=== PATIENT | female | born 1965 | race Caucasian/White ===

== ENCOUNTER 2018-10-08 17:41 | Inpatient (IN) ==
[2018-10-08] MEDS ORDERED: Ipratropium/Albuterol Neb 3 ML IH ONE (17:46)
[2018-10-08] MEDS ORDERED: 0.9 % Sodium Chloride 1,000 ML IVC ONE (17:46)
[2018-10-08] MEDS ORDERED: methylPREDNISolone 125 MG/2 ML VIAL IVP ONE (17:46)
[2018-10-08] MEDS ORDERED: Levofloxacin 750 MG/150 ML 750 MG/150 ML BAG IVPB ONE (17:46)
--- NOTE | 2018-10-08 17:47 | Emergency Department Note ---
Disposition Clinical Impression: Acute exacerbation of chronic obstructive airways disease Disposition: Admitted As Inpatient Condition: Good Referrals: NONE,PCP [Primary Care Provider] - Forms: ED Satisfaction Letter SOB HPI - General Chief Complaint: ED Shortness of Breath/Dyspnea Stated Complaint: Short of breath, lightheaded low o2 Time Seen by Provider: 10/08/18 17:46 Source: patient, family, EMS Mode of arrival: EMS Limitations: no limitations Nursing Notes Reviewed: Yes Vital Signs Reviewed: Yes - History of Present Illness The patient arrives by EMS with a history of shortness of breath and dyspnea and exertional for the last week. She states she has week to where she is dizzy and near syncopal with standing and walking. She is on her home oxygen at 2 L but was saturating at 88% for EMS. They did administer an aerosol and transported her in for evaluation. They stated that she was saturating 93% for them. Patient has had a cough with phlegm area and she states this is dark yellow to brown and occasionally blood-streaked. She has had a feeling of fevers and chills. She has left-sided chest pain with coughing that is stabbing she denies any other chest pain or radiation of discomfort. She denies diaphoresis or nausea. She denies abdominal complaints. She is not having back pain. She has a low shortly swelling, immobilization or injury. She denies any history of heart disease. She states she does have COPD. She was seen for this yesterday at [facility] emergency department and she states she was sent home on steroids and an inhaler. Pt Subjective Complaint: shortness of breath, cough, chest pain (Left side with cough) Onset (ago): week(s) (1) Context: recent illness Severity: moderate, severe Consistency/Duration: gradually worsening Improves with: oxygen, rest, bronchodilators Worsens with: exertion, coughing Known history of: COPD, asthma Associated symptoms: Reports: chest pain (Left side with cough), pain with inspiration, fever, cough, wheezing, sputum production, hemoptysis. Denies: orthopnea, lower extremity pain, polyuria, polydipsia, parasthesias, palpitations, diaphoresis, nausea/vomiting, syncope, abdominal pain, rash, sense of impending doom Treatment prior to arrival: oxygen, bronchodilator Cough present: Yes Cough Description: Voluntary, Productive, Bronchospastic, Rattling Cough Frequency: Intermittent Sputum production: Yes Sputum Amount: Moderate Sputum Color: Yellow, [place] Tinged, Brown - Related Data Home oxygen amount: 2 liters Home Medications Medication Instructions Recorded Confirmed Azithromycin [Azithromycin 6-Tab 250 mg PO PER PKG DI 10/08/18 10/08/18 Pack] Previous Rx's Medication Instructions Recorded Albuterol Sulfate [Albuterol 2 puff IH Q4HR #1 hfa.aer.ad 06/17/18 Inhaler] Guaifenesin/Dm/Pseudoephedrine 1 each PO BID #20 tablet 06/17/18 [Capmist Dm Tablet] PredniSONE [Deltasone] 20 mg PO DAILY #12 tablet 06/17/18 Albuterol Neb [Proventil Neb] 2.5 mg IH Q4HR #30 vial.neb 10/06/18 Benzonatate [Tessalon] 200 mg PO TID #20 capsule 10/06/18 predniSONE [Prednisone] 50 mg PO DAILY #5 tablet 10/06/18 Allergies Allergy/AdvReac Type Severity Reaction Status Date / Time cephalexin [From Keflex] Allergy Difficulty Verified 10/06/18 09:18 Breathing codeine Allergy Difficulty Verified 10/06/18 09:18 Breathing All systems ED: reviewed and negative except as stated. Past Medical History - Past Medical History Attestation: Yes The following information was validated with the patient. Source: patient, old records reviewed, nursing notes reviewed Medical history: Reports: COPD. Denies: coronary artery disease, DVT, hyperlipidemia, hypertension, myocardial infarction, pulmonary embolus [employer]ON[employer]MAN history: Reports: bilateral tubal ligation - Social History Smoking Status: Current some day smoker Smokeless Tobacco Status: No Alcohol use: Reports: none Drug use: Reports: none Physical Exam - General Limitations: no limitations General appearance: alert, anxious - Head Head exam: atraumatic, normocephalic, normal inspection - Eye Eye exam: Present: normal appearance, PERRL, EOMI - ENT ENT exam: normal exam, normal oropharynx, mucous membranes moist - Neck Neck exam: Present: normal inspection, full ROM, trachea midline. Absent: tenderness, meningismus, lymphadenopathy - Chest Chest inspection: Present: normal inspection, symmetric chest wall rise - Respiratory Respiratory exam: Present: respiratory distress, wheezes, prolonged expiratory phase. Absent: stridor, accessory muscle use - Cardiovascular Cardiovascular exam: Present: regular rate, normal rhythm, normal heart sounds - Abdominal Exam Abdominal exam: Present: soft, Non-Tender, normal bowel sounds. Absent: tenderness, distention, guarding, rebound, rigidity - Extremities Exam Extremities exam: Present: normal inspection, full ROM, normal capillary refill. Absent: tenderness, pedal edema, calf tenderness - Expanded Lower Extremity Exam Neurovascular/Tendon exam: Present: normal capillary refill. Absent: motor deficit, sensory deficit, tendon deficit Gait: not tested/not observed - Back Exam Back exam: Present: normal inspection, full ROM. Absent: tenderness - Neurological Exam Neurological exam: Present: alert, oriented X3 - Psychiatric Psychiatric exam: Present: normal affect, anxious - Skin Skin exam: Present: warm, dry, intact, normal color. Absent: cyanosis, diapho resis, pallor Course Course Narrative: Old record was reviewed upon the patient's arrival. She is been started on respiratory protocol with aerosols, IV, Solu-Medrol as well as some Levaquin. She has reported allergy to cephalexin. I anticipate her likely observation given failure of outpatient treatment and persistent hypoxia on her home oxygen. 1899: The patient does have an elevated d-dimer. A CT PE study has been ordered. Her daughter has arrived and states she is started on azithromycin today. She had 2 tablets at 2 PM. 1939: The patient is in CT for PE study at this time. I had talked to Dr. Cheng is agreeable with observation at this facility should the CT PE study be negative for central pulmonary emboli. Preliminary orders have been obtained for her admission and we are waiting radiology read on the CT PE. Vital Signs Temperature 98.1 F 10/08/18 17:42 Pulse Rate 109 10/08/18 17:42 Respiratory Rate 20 10/08/18 17:42 Blood Pressure 114/92 10/08/18 17:42 O2 Sat by Pulse Oximetry 92 10/08/18 17:42 Temperature 98.1 F 10/08/18 17:42 Pulse Rate 103 10/08/18 20:10 Respiratory Rate 25 10/08/18 19:50 Blood Pressure 114/70 10/08/18 20:00 O2 Sat by Pulse Oximetry 90 10/08/18 20:10 Oxygen Delivery Oxygen Delivery Nasal Cannula Shortness of Breath/Dyspnea - Differential Diagnosis Likely: acute exacerbation of chronic obstructive airways disease, pneumonia, asthma with exacerbation - Medical Records Medical records reviewed: Yes I reviewed the patient's medical records. Patient was seen yesterday for history of dyspnea with some blood-streaked white phlegm. She had imaging, EKG and extensive laboratory without finding acute abnormality. She was started on prednisone, albuterol and Tessalon. X-ray report is as follows: XR/XR chest 1V portable IMPRESSION: 1. No active pulmonary disease. D/ / Mathieu Scott MD / Mathieu Scott MD - Lab Data Lab results reviewed: Yes I reviewed the patient's lab results. Result diagrams: 10/08/18 18:11 10/08/18 18:11 Lab Results 10/08/18 10/08/18 10/08/18 Range/Units 18:11 18:11 18:11 WBC 5.1 (4.3-11.1) K/mcL RBC 4.21 (3.82-4.97) M/mcL Hgb 12.7 (11.5-15.4) g/dL Hct 37.5 (35.3-44.9) % MCV 89.1 (83.0-100.0) fL MCH 30.2 (28.0-33.3) pg MCHC 33.9 (31.6-35.5) g/dL RDW 12.5 (11.5-14.5) % Plt Count 178 (140-400) K/mcL MPV 10.0 (9.4-12.4) fL Immature Gran % 0.4 (0-4) % Seg Neutrophils % 64.2 % Lymphocytes % 25.5 % Monocytes % 9.7 % Eosinophils % 0.0 % Basophils % 0.2 % Neutrophils # 3.3 (1.6-8.9) K/mcL Lymphocytes # 1.3 (0.6-4.6) K/mcL Monocytes # 0.5 (0.0-1.3) K/mcL Eosinophils # 0.0 (0.0-0.6) K/mcL Basophils # 0.0 (0.0-0.2) K/mcL Reactive Lymphocytes Present A (Not Present) Platelet Estimate Normal (Normal) PT 12.3 H (9.4-12.1) Seconds INR 1.1 D-Dimer (0-500) ng/mLFEU Sodium 130 L (136-145) mEq/L Potassium 3.7 (3.5-5.1) mEq/L Chloride 92 L (98-107) mEq/L Carbon Dioxide 33 H (23-29) mEq/L BUN 10 (6-20) mg/dL Creatinine 0.39 L (0.60-1.20) mg/dL Est GFR ( Amer) > 60 (> 60) Est GFR (Non-Af Amer) > 60 (> 60) BUN/Creatinine Ratio 26 (6-26) Glucose 125 H (70-105) mg/dL Calculated Osmolality 271 L (280-300) Lactic Acid (0.5-2.2) mmol/L Calcium 8.9 (8.6-10.3) mg/dL Troponin I < 0.03 (< 0.04) ng/mL B-Natriuretic Peptide (Less than 100) pg/mL 10/08/18 10/08/18 10/08/18 Range/Units 18:11 18:11 18:11 WBC (4.3-11.1) K/mcL RBC (3.82-4.97) M/mcL Hgb (11.5-15.4) g/dL Hct (35.3-44.9) % MCV (83.0-100.0) fL MCH (28.0-33.3) pg MCHC (31.6-35.5) g/dL RDW (11.5-14.5) % Plt Count (140-400) K/mcL MPV (9.4-12.4) fL Immature Gran % (0-4) % Seg Neutrophils % % Lymphocytes % % Monocytes % % Eosinophils % % Basophils % % Neutrophils # (1.6-8.9) K/mcL Lymphocytes # (0.6-4.6) K/mcL Monocytes # (0.0-1.3) K/mcL Eosinophils # (0.0-0.6) K/mcL Basophils # (0.0-0.2) K/mcL Reactive Lymphocytes (Not Present) Platelet Estimate (Normal) PT (9.4-12.1) Seconds INR D-Dimer 703 H (0-500) ng/mLFEU Sodium (136-145) mEq/L Potassium (3.5-5.1) mEq/L Chloride (98-107) mEq/L Carbon Dioxide (23-29) mEq/L BUN (6-20) mg/dL Creatinine (0.60-1.20) mg/dL Est GFR ( Amer) (> 60) Est GFR (Non-Af Amer) (> 60) BUN/Creatinine Ratio (6-26) Glucose (70-105) mg/dL Calculated Osmolality (280-300) Lactic Acid 0.8 (0.5-2.2) mmol/L Calcium (8.6-10.3) mg/dL Troponin I (< 0.04) ng/mL B-Natriuretic Peptide 37 (Less than 100) pg/mL - Radiology Data Radiology results reviewed: Yes I reviewed the patient's radiology results. Single view chest x-ray is performed. This does not demonstrate evidence for infiltrate, effusion, pneumothorax, foreign body or heart failure. The cardiac silhouette is normal. I do not see abnormality to the osseous structures of the chest. This is on my interpretation. Impressions Chest X-Ray 10/08/18 17:46 IMPRESSION: No acute findings. No change. D/ / 10/08/2018 18:36:23 Micky Prado MD / sharmin Interpreting Provider: Micky Prado MD Impressions Chest X-Ray 10/08/18 17:46 IMPRESSION: No acute findings. No change. D/ / 10/08/2018 18:36:23 Micky Prado MD / sharmin Interpreting Provider: Micky Prado MD Chest CTA 10/08/18 19:03 IMPRESSION: No gross findings of pulmonary embolism. Multifocal bilateral patchy heterogeneous and nodular infiltrate, likely reflecting pneumonitis. Mural thickening of broncholes, in keeping with superimposed airways disease. Mediastinal and hilar adenopathy is likely reactive. Follow-up to resolution is recommended. D/ / Barry Loaiza MD / Barry Loaiza MD Interpreting Provider: Barry Loaiza MD - EKG Data EKG attestation: Yes I reviewed and interpreted this EKG. EKG shows normal: Reports: sinus rhythm, axis, intervals, QRS complexes, ST-T waves Rate: Reports: tachycardia (106) Interpretation: Reports: no acute changes, normal EKG
[2018-10-08 18:26] LABS: Basophils % 0.2 %; Hematocrit 37.5 % (35.3-44.9); Hemoglobin 12.7 g/dL (11.5-15.4); Immature Granulocytes % 0.4 % (0-4); Lymphocytes # 1.3 K/mcL (0.6-4.6); Lymphocytes % 25.5 %; Mean Corpuscular HGB Conc 33.9 g/dL (31.6-35.5); Mean Corpuscular Hemoglobin 30.2 pg (28.0-33.3); Mean Corpuscular Volume 89.1 fL (83.0-100.0); Monocytes # 0.5 K/mcL (0.0-1.3); Monocytes % 9.7 %; Neutrophils # 3.3 K/mcL (1.6-8.9); Platelet Count 178 K/mcL (140-400); Red Blood Count 4.21 M/mcL (3.82-4.97); Red Cell Distribution Width 12.5 % (11.5-14.5); Segmented Neutrophils % 64.2 %
[2018-10-08 18:35] LABS: INR 1.1; Prothrombin Time 12.3 Seconds (9.4-12.1)
[2018-10-08 18:41] LABS: BUN/Creatinine Ratio 26 (6-26); Blood Urea Nitrogen 10 mg/dL (6-20); Calcium 8.9 mg/dL (8.6-10.3); Carbon Dioxide 33 mEq/L (23-29); Chloride 92 mEq/L (98-107); Glucose 125 mg/dL (70-105); Osmolality,Calculated 271 (280-300); Potassium 3.7 mEq/L (3.5-5.1); Sodium 130 mEq/L (136-145); eGFR For Non-African Americans > 60 (> 60)
[2018-10-08 18:45] LABS: Troponin I < 0.03 ng/mL (< 0.04)
[2018-10-08 19:02] LABS: Platelet Estimate Normal (Normal); Reactive Lymphocytes Present (Not Present)
[2018-10-08] MEDS ORDERED: Isovue-370 500 ML BOTTLE IVP ONE (19:03)
[2018-10-08] MEDS ORDERED: Ketorolac 30 MG/ML VIAL IVP ONE (20:11)
[2018-10-08] MEDS ORDERED: Albuterol 2.5 MG/3 ML NEBULIZER IH PRN (21:31)
[2018-10-08] MEDS ORDERED: Ibuprofen 600 MG TABLET PO PRN (21:31)
[2018-10-08] MEDS ORDERED: Naloxone 0.4 MG/ML INJ IVP PRN (21:31)
[2018-10-08] MEDS ORDERED: Ondansetron 4 MG/2 ML VIAL IVP PRN (21:31)
[2018-10-08] MEDS: Ipratropium/Albuterol Neb 3 ML IH SCH (23:05)
[2018-10-08] MEDS: 0.9 % Sodium Chloride 1,000 ML IVC SCH (23:31)
[2018-10-08] MEDS: Benzonatate 100 MG CAPSULE PO SCH (23:31)
[2018-10-09] MEDS: Ipratropium/Albuterol Neb 3 ML IH SCH ×4 (04:01→22:29)
[2018-10-09] MEDS: Benzonatate 100 MG CAPSULE PO SCH ×3 (08:59→20:06)
[2018-10-09] MEDS: 0.9 % Sodium Chloride 1,000 ML IVC SCH (09:00)
[2018-10-09] MEDS ORDERED: Levofloxacin 750 MG/150 ML 750 MG/150 ML BAG IVPB SCH ×3 (09:00→21:00)
[2018-10-09] MEDS: predniSONE 20 MG TABLET PO SCH (09:00)
[2018-10-09] MEDS: Azithromycin 250 MG TABLET PO SCH (09:00)
--- NOTE | 2018-10-09 10:13 | Electrocardiograph Report ---
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
--- NOTE | 2018-10-09 11:52 | Internal Med History&Physical ---
Date of Encounter: 10/09/18 Time of Encounter: 11:25 Assessment and Plan (1) Pneumonia Current visit: Yes Status: Acute She has been started on Levaquin and Zithromax. Lactobacillus will be added. Pro-calcitonin level will be checked. Qualifiers: Pneumonia type: due to unspecified organism Laterality: bilateral Lung location: unspecified part of lung Qualified Code(s): J18.9 - Pneumonia, unspecified organism (2) Hyponatremia Current visit: Yes Status: Acute Possibly secondary to pneumonia. Continue to monitor. (3) Acute exacerbation of chronic obstructive airways disease Current visit: Yes Status: Acute Pneumonia treatment as per above. She will be started on Symbicort and DuoNeb nebs. Albuterol nebs will be available as needed. Continue steroids. Internal Medicine - H&P: HPI Chief complaint: Cough and dyspnea Admitted From: Emergency Dept Plans for Post Hospital Care: Home History of present illness: Ms. Leon is a 53 year old female who came to emergency room complaining of one-week history of increased cough with dyspnea. She reports the cough is productive of yellow sputum occasionally. She reports fevers and chills. She was evaluated at [facility] emergency room 10/06/2018 and diagnosed with exacerbation of COPD. She was prescribed albuterol nebs, Tessalon, and prednisone. When she did not improve she came to [facility] emergency room and was found to have evidence of pneumonia on chest CTA. She was admitted to [facility] floor for ongoing care needs. Respiratory history is significant for having smoked since age 9 never up to one pack per day. PFTs 08/18/2018 showed FEV1 51% predicted, FVC 70% predicted, FEV1/FVC 72%, MVV 39% predicted, RV 170% predicted, and DLCO (uncorrected) 61%. There was insignificant improvement in FEV1 postbronchodilator. She was diagnosed with moderate obstructive lung disease. She reports she has previously been prescribed oxygen for home use but states she has been told since then she did not qualify and the oxygen was removed. Past Med Surg Social Fam HX - Past Medical History Medical history: COPD Additional medical history: [facility] Psychiatric history: no psych history - Past Surgical History Additional surgical history: Carpal tunnel (bilat). Left foot - Social History Smoking Status: Former smoker Smokeless Tobacco Status: No Alcohol use: none Drug use: none Internal Medicine - H&P: Meds Albuterol Sulfate [Albuterol Inhaler] 2 puff IH Q4HR #1 hfa.aer.ad 06/17/18 [Rx] Guaifenesin/Dm/Pseudoephedrine [Capmist Dm Tablet] 1 each PO BID #20 tablet 06/17/18 [Rx] PredniSONE [Deltasone] 20 mg PO DAILY #12 tablet 06/17/18 [Rx] Albuterol Neb [Proventil Neb] 2.5 mg IH Q4HR #30 vial.neb 10/06/18 [Rx] Benzonatate [Tessalon] 200 mg PO TID #20 capsule 10/06/18 [Rx] predniSONE [Prednisone] 50 mg PO DAILY #5 tablet 10/06/18 [Rx] Azithromycin [Azithromycin 6-Tab Pack] 250 mg PO PER PKG DI 10/08/18 [History] Allergy/AdvReac Type Severity Reaction Status Date / Time cephalexin [From Keflex] Allergy Difficulty Verified 10/06/18 09:18 Breathing codeine Allergy Difficulty Verified 10/06/18 09:18 Breathing All Systems PM: A 10-system review of systems was performed and is negative for pertinent findings except as documented above in the HPI. Review of systems: Gen.: She states her weight has decreased approximately 20 pounds in the past 1- 2 weeks but had been stable prior to acute illness. Cardiovascular: She denies hypertension [place] heart failure angina DVT or pulmonary embolus. She has dyspnea on exertion Respiratory: As per history of present illness GI: She has had cholecystectomy remotely. She had gallstone pancreatitis at age 27 without recurrence. She denies other disorders of her liver or exocrine pancreas : She denies hematuria dysuria or kidney stones Neurologic: She denies large distribution strokes or seizures. Endocrine: She denies diabetes thyroid disease or hyperlipidemia Hematology/oncology: She denies blood disorders cancers or anemia Psychiatric: She has anxiety and depression. She denies other mental health diagnoses. [place] skeletal: She has had bilateral carpal tunnel surgery. She had left foot injury with surgical repair of tendons remotely. She has DJD but denies gout or other bone joint or muscle disorders. - Constitutional Vitals: Temp Pulse Resp BP Pulse Ox 98.6 F 101 23 102/65 95 10/09/18 10:44 10/09/18 10:44 10/09/18 10:44 10/09/18 10:44 10/09/18 10:44 Exam: Gen.: She is a well-developed well-nourished female sitting on the side of bed who appears slightly dyspneic HEENT: Head is atraumatic and normocephalic. Eyes: EOMI. There is no scleral icterus. Mouth: Mucosa is moist. Neck: There is no thyromegaly or adenopathy noted. Heart: Regular with rate approximately 100/m. No murmurs or gallops are heard. Lungs: She has prolonged expiratory phase and mild diffuse wheezing. A few scattered rhonchi are heard in the bases posteriorly. Abdomen: Soft and nontender. No masses or guarding are noted. Extremities: There is no cyanosis edema or clubbing noted. Dorsalis pedis and posttibial pulses are trace to 1+ palpable bilaterally. Her feet are warm to touch. Neurologic: Mental status: She is talkative and a good historian. Cranial nerves: Smile is symmetric. Forehead wrinkles bilaterally. Tongue protrudes midline. EOMI. Motor: There is no pronator drift. Cerebellar: Finger to nose is intact bilaterally. Skin: Warm and dry Internal Med - H&P Results - Labs CBC & Chem 7: 10/08/18 18:11 10/08/18 18:11 Labs: Short CBC 10/08/18 Range/Units 18:11 WBC 5.1 (4.3-11.1) K/mcL Hgb 12.7 (11.5-15.4) g/dL Hct 37.5 (35.3-44.9) % Plt Count 178 (140-400) K/mcL Neutrophils # 3.3 (1.6-8.9) K/mcL BMP 10/08/18 18:11 Sodium 130 L Potassium 3.7 Chloride 92 L Carbon Dioxide 33 H BUN 10 Creatinine 0.39 L Glucose 125 H Calcium 8.9 Cardiac Enzymes 10/08/18 Range/Units 18:11 Troponin I < 0.03 (< 0.04) ng/mL - Impressions ITS Impressions Chest X-Ray 10/08/18 17:46 IMPRESSION: No acute findings. No change. D/ / 10/08/2018 18:36:23 Micky Prado MD / sharmin Interpreting Provider: Micky Prado MD Chest CTA 10/08/18 19:03 IMPRESSION: No gross findings of pulmonary embolism. Multifocal bilateral patchy heterogeneous and nodular infiltrate, likely reflecting pneumonitis. Mural thickening of broncholes, in keeping with superimposed airways disease. Mediastinal and hilar adenopathy is likely reactive. Follow-up to resolution is recommended. D/ / Barry Loaiza MD / Barry Loaiza MD Interpreting Provider: Barry Loaiza MD
[2018-10-09] MEDS: Budesonide/Formoterol 160/4.5 1 PUFF INH IH SCH ×2 (13:03→22:29)
[2018-10-10] MEDS: Ipratropium/Albuterol Neb 3 ML IH SCH ×4 (04:43→21:53)
[2018-10-10] MEDS: Benzonatate 100 MG CAPSULE PO SCH ×3 (08:39→20:54)
[2018-10-10] MEDS: Azithromycin 250 MG TABLET PO SCH (08:40)
[2018-10-10] MEDS: predniSONE 20 MG TABLET PO SCH (08:40)
--- NOTE | 2018-10-10 09:13 | Internal Med Progress Note ---
Date of Encounter: 10/10/18 Time of Encounter: 09:05 - Assessment and plan (1) Pneumonia Current Visit: Yes Status: Acute Assessment and plan: October 10. Pro-calcitonin level was normal at 0.03. Will discontinue antibiotics. Qualifiers: Pneumonia type: due to unspecified organism Laterality: bilateral Lung location: unspecified part of lung Qualified Code(s): J18.9 - Pneumonia, unspecified organism (2) Hyponatremia Current Visit: Yes Status: Acute Assessment and plan: October 10. Recheck labs in a.m. (3) Acute exacerbation of chronic obstructive airways disease Current Visit: Yes Status: Acute Assessment and plan: October 10. Continue present Rx. - Subjective Interval history: October 10. She complains of a headache. She does not feel her breathing has significantly improved. - Constitutional Vitals: Temp Pulse Resp BP Pulse Ox 98.6 F 94 24 103/67 94 10/10/18 06:49 10/10/18 06:49 10/10/18 06:49 10/10/18 06:49 10/10/18 06:49 Exam: She is sitting on the side of the bed and appears slightly dyspneic. She has prolonged expiratory phase and mild diffuse wheezing. I reviewed her medica tions Internal Medicine: Result - Labs CBC & Chem 7: 10/08/18 18:11 10/08/18 18:11 - ABG Interpretation ABG results: PT/INR, D-dimer PT 12.3 Seconds (9.4-12.1) H 10/08/18 18:11 703 ng/mLFEU (0-500) H 10/08/18 18:11 Consult Discharge Plan - Plan Referrals: NONE,PCP [Primary Care Provider] - 1 week
[2018-10-10] MEDS ORDERED: Levalbuterol Neb 1.25 MG/3 ML IH PRN (09:15)
[2018-10-10] MEDS: Budesonide/Formoterol 160/4.5 1 PUFF INH IH SCH ×2 (10:35→21:53)
[2018-10-11] MEDS: Ipratropium/Albuterol Neb 3 ML IH SCH ×2 (04:34→10:09)
[2018-10-11] MEDS ORDERED: *HR* Enoxaparin 40 MG/0.4 ML SYRINGE SQ SCH (06:00)
[2018-10-11 06:30] LABS: Hematocrit 33.4 % (35.3-44.9); Hemoglobin 10.9 g/dL (11.5-15.4); Mean Corpuscular HGB Conc 32.6 g/dL (31.6-35.5); Mean Corpuscular Hemoglobin 29.9 pg (28.0-33.3); Mean Corpuscular Volume 91.8 fL (83.0-100.0); Mean Platelet Volume 9.7 fL (9.4-12.4); Neutrophils # 3.1 K/mcL (1.6-8.9); Platelet Count 281 K/mcL (140-400); Red Blood Count 3.64 M/mcL (3.82-4.97); Red Cell Distribution Width 13.1 % (11.5-14.5)
[2018-10-11 06:42] VITALS: BP 102/66
[2018-10-11 06:57] LABS: BUN/Creatinine Ratio 21 (6-26); Blood Urea Nitrogen 9 mg/dL (6-20); Calcium 8.7 mg/dL (8.6-10.3); Carbon Dioxide 39 mEq/L (23-29); Chloride 98 mEq/L (98-107); Glucose 103 mg/dL (70-105); Osmolality,Calculated 289 (280-300); Potassium 3.5 mEq/L (3.5-5.1); Sodium 140 mEq/L (136-145); eGFR For Non-African Americans > 60 (> 60)
[2018-10-11 07:29] LABS: Lymphocytes # 3.3 K/mcL (0.6-4.6); Monocytes # 0.1 K/mcL (0.0-1.3)
[2018-10-11 07:30] LABS: Platelet Estimate Normal (Normal); Reactive Lymphocytes Present (Not Present)
[2018-10-11] MEDS: Benzonatate 100 MG CAPSULE PO SCH (08:14)
[2018-10-11] MEDS: predniSONE 20 MG TABLET PO SCH (08:14)
[2018-10-11] MEDS: Budesonide/Formoterol 160/4.5 1 PUFF INH IH SCH (10:09)
--- NOTE | 2018-10-11 10:39 | Discharge Summary ---
Orders not resulted at time of discharge: Pending orders 10/08/18 18:17 Culture,Blood [BC] Stat 10/11/18 06:20 Procalcitonin Routine Date of Encounter: 10/11/18 Time of Encounter: 10:20 - Discharge Diagnosis (1) Pneumonia Priority: Primary Status: Acute Qualifiers: Pneumonia type: due to unspecified organism Laterality: bilateral Lung location: unspecified part of lung Qualified Code(s): J18.9 - Pneumonia, unspecified organism (2) Hyponatremia Priority: Secondary Status: Acute (3) Acute exacerbation of chronic obstructive airways disease Priority: Secondary Status: Acute Hospital course: Ms. Leon is a 53 year old female who came to emergency room complaining of one-week history of increased cough with dyspnea. She reports the cough is productive of yellow sputum occasionally. She reports fevers and chills. She was evaluated at [facility] emergency room 10/06/2018 and diagnosed with exacerbation of COPD. She was prescribed albuterol nebs, Tessalon, and prednisone. When she did not improve she came to [facility] emergency room and was found to have evidence of pneumonia on chest CTA. She was admitted to [facility] floor for ongoing care needs. Initial orders were written by the emergency room physician. I saw her on October 09 and performed a history and physical. She was started on IV Levaquin and Zithromax in emergency room. Lactobacillus was added. Pro-calcitonin level returned normal at 0.03. She remained afebrile during her hospital stay. She had slight improvement in expiratory wheezing. When I saw her on October 11 she stated she felt improved and stable for discharge home. She will be given Breo ellipta, Spiriva, and Singulair at discharge. Prednisone will be continued as prescribed prior to hospitalization. Room air oximetry the morning of October 11 showed saturation decreasing to 86% upon removal of oxygen in preparation for a 6 minute walk. She became dyspneic and required immediate restitution of oxygen for comfort and safety. She will be prescribed oxygen 2 L/m by nasal cannula 16/12 with portable gas and concentrator. Qualifying diagnosis is COPD with hypoxemia not remedied by use of bronchodilators. I encouraged her to become a nonsmoker. She will follow with her PCP Dr. Yang within 1 week. - Time Spent with Patient Total time spent providing and/or coordinating discharge services: - Discharge Medications Prescriptions: New Fluticasone/Vilanterol [Breo Ellipta 100-25 Mcg INH] 1 each IH DAILY #30 blst.w.dev Montelukast [Singulair] 10 mg PO DAILY #7 tablet Tiotropium [Spiriva] 18 mcg IH DAILY #30 capsule Continued Albuterol Sulfate [Albuterol Inhaler] 2 puff IH Q4HR #1 hfa.aer.ad Guaifenesin/Dm/Pseudoephedrine [Capmist Dm Tablet] 1 each PO BID #20 tablet predniSONE [Prednisone] 50 mg PO DAILY #5 tablet Albuterol Neb [Proventil Neb] 2.5 mg IH Q4HR #30 vial.neb Benzonatate [Tessalon] 200 mg PO TID #20 capsule Azithromycin [Azithromycin 6-Tab Pack] 250 mg PO PER PKG DI Discontinued PredniSONE [Deltasone] 20 mg PO DAILY #12 tablet Home Medications: Albuterol Sulfate [Albuterol Inhaler] 2 puff IH Q4HR #1 hfa.aer.ad 06/17/18 [Rx] Guaifenesin/Dm/Pseudoephedrine [Capmist Dm Tablet] 1 each PO BID #20 tablet 06/17/18 [Rx] Albuterol Neb [Proventil Neb] 2.5 mg IH Q4HR #30 vial.neb 10/06/18 [Rx] Benzonatate [Tessalon] 200 mg PO TID #20 capsule 10/06/18 [Rx] predniSONE [Prednisone] 50 mg PO DAILY #5 tablet 10/06/18 [Rx] Azithromycin [Azithromycin 6-Tab Pack] 250 mg PO PER PKG DI 10/08/18 [History] Fluticasone/Vilanterol [Breo Ellipta 100-25 Mcg INH] 1 each IH DAILY #30 blst.w.dev 10/11/18 [Rx] Montelukast [Singulair] 10 mg PO DAILY #7 tablet 10/11/18 [Rx] Tiotropium [Spiriva] 18 mcg IH DAILY #30 capsule 10/11/18 [Rx] Allergies/Adverse Reactions: Allergy/AdvReac Type Severity Reaction Status Date / Time cephalexin [From Keflex] Allergy Difficulty Verified 10/06/18 09:18 Breathing codeine Allergy Difficulty Verified 10/06/18 09:18 Breathing Date of admission: 10/10/18 17:25 Primary care physician: Kamlesh Yang M.D. Consults: 10/08/18 23:44 Consult to Nutrition [CONS] Routine Comment: Consulting Provider: NUTRITION Reason for Dietary Consult: MST Score - Constitutional Vitals: Temp Pulse Resp BP Pulse Ox 98.2 F 91 21 102/66 93 10/11/18 06:40 10/11/18 06:40 10/11/18 06:40 10/11/18 06:40 10/11/18 07:39 - Patient Status Disposition: Home, Self-Care Condition: Good - Discharge Instructions Follow Up With: Amalia Yang MD [Non-Partnered Physician] - 1 week - Diet and Activity Activity: wear oxygen at all times Diet: advance to your usual diet
== END 2018-10-11 12:33 | disposition home or self-care (01) | DRG 139 ==
LOC: INPPIK 17:41 → EMEROOPIK 17:41 → INPPIK 21:00
PROVIDERS: ADMIT Internal Medicine; ATTEND Internal Medicine

== ENCOUNTER 2018-10-16 10:32 | Observation (INO) ==
--- NOTE | 2018-10-16 10:39 | Emergency Department Note ---
Disposition Clinical Impression: COPD exacerbation Disposition: Admitted As Inpatient Condition: Good Time of Disposition: 13:00 General Adult HPI - General Chief complaint: ED Shortness of Breath/Dyspnea Stated complaint: cough and congestion Time Seen by Provider: 10/16/18 10:32 Source: patient Mode of arrival: ambulatory Limitations: no limitations Nursing Notes Reviewed: Yes Vital Signs Reviewed: Yes - History of Present Illness HPI Narrative: Patient has had shortness of breath since leaving the hospital on Friday. She ran out of all of her medicines a couple of days ago and now is worse. She has felt chills but has not had a fever. Coughing up white phlegm. Onset (ago): day(s) (5 days) Location: chest Consistency: constant Improves with: nothing Worsens with: nothing Associated symptoms: Reports: cough, shortness of breath - Related Data Home Medications Medication Instructions Recorded Confirmed No Known Home Drugs 10/16/18 10/16/18 Allergies Allergy/AdvReac Type Severity Reaction Status Date / Time cephalexin [From Keflex] Allergy Difficulty Verified 10/06/18 09:18 Breathing codeine Allergy Difficulty Verified 10/06/18 09:18 Breathing All systems ED: reviewed and negative except as stated. Review of Systems: As Per HPI Constitutional: Reports: as per HPI, chills Eyes: Denies: eye pain, eye discharge, vision change ENT ED: Denies: ear pain, throat pain, dental pain, hearing loss, epistaxis, congestion, dysphagia Cardiovascular: Denies: chest pain, palpitations, dyspnea on exertion, edema, syncope Respiratory: Reports: as per HPI, cough, dyspnea, wheezes Gastrointestinal: Denies: abdominal pain, nausea, vomiting, diarrhea, constipation, hematemesis, melena, hematochezia Genitourinary: Denies: dysuria, frequency, hematuria, discharge Musculoskeletal: Denies: back pain, neck pain, arthralgia, myalgia Integumentary: Denies: rash, abrasion, lesions Neurological: Denies: headache, weakness, numbness, paresthesias, confusion, abnormal gait, vertigo Psychiatric: Denies: anxiety, depression, suicidal thoughts, homicidal thoughts, auditory hallucinations, visual hallucinations Endocrine: Denies: fatigue Hematological/Lymphatic: Denies: easy bleeding, easy bruising Allergic/Immunologic: Denies: facial swelling, urticaria Past Medical History - Past Medical History Attestation: Yes The following information was validated with the patient. Source: patient, nursing notes reviewed Medical history: Reports: COPD Psychiatric history: Reports: no psych history [employer] history: Reports: bilateral tubal ligation - Social History Smoking Status: Former smoker Smokeless Tobacco Status: No Alcohol use: Reports: none Drug use: Reports: none Physical Exam - General Limitations: no limitations General appearance: alert, in no apparent distress - Head Head exam: atraumatic, normocephalic, normal inspection - Eye Eye exam: Present: normal appearance, PERRL, EOMI - ENT ENT exam: normal exam, normal oropharynx, mucous membranes moist - Neck Neck exam: Present: normal inspection, full ROM, trachea midline - Chest Chest inspection: Present: normal inspection, symmetric chest wall rise - Respiratory Respiratory exam: Present: normal lung sounds bilaterally, respiratory distress, wheezes, accessory muscle use - Cardiovascular Cardiovascular exam: Present: regular rate, normal rhythm, normal heart sounds - Abdominal Exam Abdominal exam: Present: soft, Non-Tender. Absent: tenderness, distention, guarding, rebound, rigidity - Extremities Exam Extremities exam: Present: normal inspection, full ROM. Absent: tenderness, pedal edema - Back Exam Back exam: Present: normal inspection - Neurological Exam Neurological exam: Present: alert - Psychiatric Psychiatric exam: Present: normal affect, normal mood - Skin Skin exam: Present: warm, dry, intact, normal color Medical Decision Making - [facility] Narrative Medical decision making narrative: I reviewed the patient's medication list Case was discussed with Dr. Cheng who graciously accepts admission - Lab Data Lab results reviewed: Yes I reviewed the patient's lab results. - Radiology Data Radiology results reviewed: Yes I reviewed the patient's radiology results.
[2018-10-16] MEDS ORDERED: Ipratropium/Albuterol Neb 3 ML IH ONE ×2 (10:44→12:54)
[2018-10-16] MEDS ORDERED: methylPREDNISolone 125 MG/2 ML VIAL IVP ONE (10:44)
[2018-10-16] MEDS ORDERED: 0.9 % Sodium Chloride 1,000 ML IVC SCH ×2 (10:45→14:08)
[2018-10-16 11:05] LABS: Hemoglobin 13.6 g/dL (11.5-15.4); Mean Corpuscular Volume 88.3 fL (83.0-100.0); Red Blood Count 4.53 M/mcL (3.82-4.97); White Blood Count 13.6 K/mcL (4.3-11.1)
[2018-10-16 11:06] LABS: Basophils % 0.2 %; Eosinophils % 0.1 %; Immature Granulocytes % 0.5 % (0-4); Lymphocytes # 3.7 K/mcL (0.6-4.6); Lymphocytes % 27.2 %; Mean Platelet Volume 9.2 fL (9.4-12.4); Monocytes # 0.8 K/mcL (0.0-1.3); Platelet Count 517 K/mcL (140-400); Red Cell Distribution Width 12.8 % (11.5-14.5)
[2018-10-16 11:21] LABS: Alanine Aminotransferase 51 Units/L (7-52); Albumin 3.8 g/dL (3.5-5.7); Albumin/Globulin Ratio 1.3 (1.1-2.2); Alkaline Phosphatase 57 Units/L (34-104); Aspartate Amino Transferase 16 Units/L (13-39); BUN/Creatinine Ratio 16 (6-26); Bilirubin,Total 0.3 mg/dL (0.3-1.0); Blood Urea Nitrogen 9 mg/dL (6-20); Carbon Dioxide 30 mEq/L (23-29); Chloride 102 mEq/L (98-107); Globulin 2.9 g/dL (2.4-3.5); Glucose 86 mg/dL (70-105); Osmolality,Calculated 286 (280-300); Potassium 3.8 mEq/L (3.5-5.1); Sodium 139 mEq/L (136-145); Total Protein 6.7 g/dL (6.4-8.9); eGFR For African Americans > 60 (> 60); eGFR For Non-African Americans > 60 (> 60)
[2018-10-16 11:24] LABS: Troponin I < 0.03 ng/mL (< 0.04)
[2018-10-16 12:47] LABS: Bilirubin,Urine Negative (Negative); Blood,Urine Negative (Negative); Clarity,Urine Clear (Clear); Color,Urine Yellow (Yellow); Glucose,Urine (UA) Normal (Normal); Ketones,Urine Negative (Negative); Leukocyte Esterase,Urine Negative (Negative); Nitrite,Urine Negative (Negative); Protein,Urine Negative (Neg-Trace); Urobilinogen,Urine Normal (Normal)
[2018-10-16] MEDS ORDERED: Azithromycin 500 MG in D5% in Water 250 ML IVPB ONE (13:03)
[2018-10-16] MEDS ORDERED: Naloxone 0.4 MG/ML INJ IVP PRN (14:08)
[2018-10-16] MEDS: Ipratropium/Albuterol Neb 3 ML IH SCH ×4 (14:52→20:20)
[2018-10-17] MEDS: Ipratropium/Albuterol Neb 3 ML IH SCH ×3 (00:27→07:45)
[2018-10-17 06:11] VITALS: BP 103/68
--- NOTE | 2018-10-17 08:31 | Internal Med History&Physical ---
Date of Encounter: 10/17/18 Time of Encounter: 08:05 Assessment and Plan (1) Acute exacerbation of chronic obstructive airways disease Current visit: No Status: Acute She was given IV Solu-Medrol and Zithromax in emergency room. Pro-calcitonin levels were WNL 2 during her [facility] stay last week. Additional antibiotics will not be given. She will be given oral prednisone. (2) Anxiety Current visit: Yes Status: Acute She will be given low-dose Xanax on a prn basis. Internal Medicine - H&P: HPI Chief complaint: Dyspnea Admitted From: Emergency Dept Plans for Post Hospital Care: Home History of present illness: Ms. Leon is a 53 year old female who came to emergency room the day of admission complaining of worsening dyspnea. She been discharged from [facility] 09/23 after admission for pneumonia and exacerbation of COPD. She was discharged on Breo, Singulair, and Spiriva. She reports she did not take Singulair or Spiriva and her previous prescriptions for prednisone and Zithromax were completed on October 14. She he came more dyspneic and called her PCP office on October 15. She reports she was told there were no openings available and she could not be seen and no additional Rx were called to pharmacy. Her dyspnea worsened so she came to emergency room October 16 and was felt to have exacerbation of COPD. She was admitted to [facility] floor for ongoing care needs. She states she feels anxious but feels her breathing is satisfactory for discharge. Respiratory history is significant for having smoked since age 9 never up to one pack per day. She reports she has not smoked since returning home 10/11/2018. PFTs 08/18/2018 showed FEV1 51% predicted, FVC 70% predicted, FEV1/FVC 72%, MVV 39% predicted, RV 170% predicted, and DLCO (uncorrected) 61%. There was insignificant improvement in FEV1 postbronchodilator. She was diagnosed with moderate obstructive lung disease. She was prescribed oxygen 16/12 at discharge October 11. Past Med Surg Social Fam HX - Past Medical History Medical history: COPD, other Additional medical history: alpha1 disorder Psychiatric history: no psych history - Past Surgical History Additional surgical history: Carpal tunnel (bilat). Left foot - Social History Smoking Status: Former smoker Smokeless Tobacco Status: No Alcohol use: none Drug use: none Internal Medicine - H&P: Meds No Known Home Drugs 10/16/18 [History] Allergy/AdvReac Type Severity Reaction Status Date / Time cephalexin [From Keflex] Allergy Difficulty Verified 10/06/18 09:18 Breathing codeine Allergy Difficulty Verified 10/06/18 09:18 Breathing All Systems PM: A 10-system review of systems was performed and is negative for pertinent findings except as documented above in the HPI. Review of systems: Review of systems from her recent [facility] admission were reviewed and revised as below. Gen.: She states her weight has decreased approximately 20 pounds in the past 1- 2 weeks but had been stable prior to acute illness. Her weight has decreased from 53.099 kg on October 09 to 49.895 kg on admission now. Cardiovascular: She denies hypertension RI heart failure angina DVT or pulmonary embolus. She has dyspnea on exertion Respiratory: As per history of present illness GI: She has had cholecystectomy remotely. She had gallstone pancreatitis at age 27 without recurrence. She denies other disorders of her liver or exocrine pancreas : She denies hematuria dysuria or kidney stones Neurologic: She denies large distribution strokes or seizures. Endocrine: She denies diabetes thyroid disease or hyperlipidemia Hematology/oncology: She denies blood disorders cancers or anemia Psychiatric: She has anxiety and depression. She denies other mental health diagnoses. [place] skeletal: She has had bilateral carpal tunnel surgery. She had left foot injury with surgical repair of tendons remotely. She has DJD but denies gout or other bone joint or muscle disorders. - Constitutional Vitals: Temp Pulse Resp BP Pulse Ox 98.6 F 86 18 103/68 95 10/17/18 06:10 10/17/18 06:10 10/17/18 07:47 10/17/18 06:10 10/17/18 07:47 Exam: Gen.: She is a well-developed well-nourished female resting comfortably in bed who appears in no significant distress HEENT: Head is atraumatic and normocephalic. Eyes: EOMI. There is no scleral icterus. Mouth: Mucosa is moist. Neck: Supple and nontender. There is no thyromegaly or adenopathy noted. Heart: Regular without murmurs gallops or ectopics Lungs: She has prolonged expiratory phase and mild diffuse wheezing. No inspiratory crackles are heard. Abdomen: Soft and nontender. No masses or guarding are noted. Extremities: There is no cyanosis edema or clubbing noted. Dorsalis pedis and posterior tibial pulses are 1-2 over 2 bilaterally. Neurologic: Mental status: She is talkative and a good historian. Cranial nerves: Smile is symmetric. Forehead wrinkles bilaterally. Tongue protrudes midline. EOMI. Motor: There is no pronator drift. Cerebellar: Fair to nose is intact bilaterally. Skin: Warm and dry Internal Med - H&P Results - Labs CBC & Chem 7: 10/16/18 10:55 10/16/18 10:55 Labs: Short CBC 10/16/18 Range/Units 10:55 WBC 13.6 H D (4.3-11.1) K/mcL Hgb 13.6 D (11.5-15.4) g/dL Hct 40.0 (35.3-44.9) % Plt Count 517 H D (140-400) K/mcL Neutrophils # 9.0 H (1.6-8.9) K/mcL BMP 10/16/18 10:55 Sodium 139 Potassium 3.8 Chloride 102 Carbon Dioxide 30 H BUN 9 Creatinine 0.58 L Glucose 86 Calcium 9.0 Cardiac Enzymes 10/16/18 Range/Units 10:55 Troponin I < 0.03 (< 0.04) ng/mL Liver Function 10/16/18 Range/Units 10:55 Total Bilirubin 0.3 (0.3-1.0) mg/dL AST 16 (13-39) Units/L ALT 51 (7-52) Units/L Alkaline Phosphatase 57 (34-104) Units/L Albumin 3.8 (3.5-5.7) g/dL Urine 10/16/18 Range/Units 12:37 Urine Color Yellow (Yellow) Urine Clarity Clear (Clear) Urine pH 7.0 (5.0-8.0) pH Units Ur Specific Rumely 1.020 (1.010-1.025) Urine Protein Negative (Neg-Trace) mg/dL Urine Glucose (UA) Normal (Normal) mg/dL - Impressions ITS Impressions Chest X-Ray 10/16/18 10:44 IMPRESSION: No acute cardiopulmonary disease. D/ / Kasia Juares MD / Kasia Juares MD Interpreting Provider: Kasia Juares MD
--- NOTE | 2018-10-17 08:39 | Discharge Summary ---
Orders not resulted at time of discharge: Pending orders 10/16/18 10:44 ECG 12 lead ECG [ECG] Stat 10/16/18 11:10 Culture,Blood [BC] Stat Date of Encounter: 10/17/18 Time of Encounter: 08:05 - Discharge Diagnosis (1) Acute exacerbation of chronic obstructive airways disease Priority: Primary Status: Acute (2) Anxiety Priority: Secondary Status: Acute Hospital course: Ms. Leon is a 53 year old female who came to emergency room the day of admission complaining of worsening dyspnea. She been discharged from [facility] 10/11/2018 after admission for pneumonia and exacerbation of COPD. She was discharged on Breo, Singulair, and Spiriva. She reports she did not take Singulair or Spiriva and her previous prescriptions for prednisone and Zithromax were completed on October 14. She he came more dyspneic and called her PCP office on October 15. She reports she was told there were no openings available and she could not be seen and no additional Rx were called to pharmacy. Her dyspnea worsened so she came to emergency room October 16 and was felt to have exacerbation of COPD. She was admitted to [facility] for ongoing care needs. Initial orders were written by the emergency room physician. I saw her on October 17 and performed a history physical and discharge. When I saw her she stated she felt stable for discharge home. I offered to keep her another day in the hospital but she wished to be discharged home. She agreed she would use Spiriva and Singulair. She will be given prednisone for 5 days. She will also be gi ora a prescription for Xanax for prn use. She will continue to wear oxygen 16/12. I encouraged her to remain a nonsmoker. She will follow with her PCP Dr. Yang within 1 week. - Time Spent with Patient Total time spent providing and/or coordinating discharge services: - Discharge Medications Prescriptions: New Fluticasone/Vilanterol [Breo Ellipta 100-25 Mcg INH] 1 each IH DAILY #30 blst.w.dev predniSONE [PredniSONE] 10 mg PO BIDWM #10 tablet Montelukast [Singulair] 10 mg PO DAILY #30 tablet Tiotropium [Spiriva] 18 mcg IH 0700 #30 capsule ALPRAZolam [Xanax 0.25 MG Tablet] 0.25 mg PO Q6H PRN 3 Days #12 tablet PRN Reason: Anxiety Home Medications: ALPRAZolam [Xanax 0.25 MG Tablet] 0.25 mg PO Q6H PRN 3 Days #12 tablet 10/17/18 [Rx] Fluticasone/Vilanterol [Breo Ellipta 100-25 Mcg INH] 1 each IH DAILY #30 blst.w.dev 10/17/18 [Rx] Montelukast [Singulair] 10 mg PO DAILY #30 tablet 10/17/18 [Rx] Tiotropium [Spiriva] 18 mcg IH 0700 #30 capsule 10/17/18 [Rx] predniSONE [PredniSONE] 10 mg PO BIDWM #10 tablet 10/17/18 [Rx] Allergies/Adverse Reactions: Allergy/AdvReac Type Severity Reaction Status Date / Time cephalexin [From Keflex] Allergy Difficulty Verified 10/06/18 09:18 Breathing codeine Allergy Difficulty Verified 10/06/18 09:18 Breathing Date of admission: 10/16/18 13:17 Primary care physician: Amalia Yang MD - Constitutional Vitals: Temp Pulse Resp BP Pulse Ox 98.6 F 86 18 103/68 95 10/17/18 06:10 10/17/18 06:10 10/17/18 07:47 10/17/18 06:10 10/17/18 07:47 - Patient Status Disposition: Home, Self-Care Condition: Good - Discharge Instructions Follow Up With: Amalia aYng MD [Primary Care Provider] - 1 week - Diet and Activity Activity: resume usual activities as tolerated, wear oxygen at all times Diet: advance to your usual diet
--- NOTE | 2018-10-20 15:57 | Electrocardiograph Report ---
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
== END 2018-10-17 09:00 | disposition home or self-care (01) ==
LOC: INPPIK 10:32 → EMEROOPIK 10:32 → INPPIK 13:45
PROVIDERS: ADMIT Internal Medicine; ATTEND Internal Medicine